=== PATIENT | female | born 1965 | race Caucasian/White ===

== ENCOUNTER 2018-05-09 12:31 | Inpatient (IN) | payer MEDICAID ==
[~2018-05-09] VITALS: Ht 160 cm; Wt 63.1 kg
--- NOTE | 2018-05-09 12:53 | NUR ---
PT BIB FAMILY C/C ABD PAIN X 5 DAYS WITH FEVER AWAITING FOR DR SARA CHOE
--- NOTE | 2018-05-09 12:57 | NUR ---
DR ESPITIA AT BEDSIDE TO EVAL
[2018-05-09 13:21] LABS: BASOPHIL % 0.1 % (0-2); PLATELET COUNT 314 x10^3mcL (130-400); RED CELL DISTRIBUTION WIDTH 12.9 % (11.5-14.5)
[2018-05-09 13:34] LABS: CARBON DIOXIDE 27.1 mmol/L (21-32); CHLORIDE SERUM 95 mmol/L (98-107); CREATININE SERUM 0.8 mg/dL (0.6-1.0); GFR1 > 60 mL/min; GLUCOSE SERUM 300 mg/dL (74-106); SODIUM SERUM 132 mmol/L (136-145)
[2018-05-09 13:50] LABS: ALBUMIN 3.7 g/dL (3.4-5.0); ALKALINE PHOSPHATASE 140 U/L (46-116); ALT/SGPT 29 U/L (14-59); AST/SGOT 28 U/L (15-37)
[2018-05-09 13:52] LABS: TOTAL PROTEIN, SERUM 8.3 g/dL (6.4-8.2)
[2018-05-09 13:53] LABS: POTASSIUM SERUM 4.2 mmol/L (3.5-5.1)
--- NOTE | 2018-05-09 13:53 | NUR ---
XRAY AT BEDSIDE
[2018-05-09 13:56] LABS: microscopic required? YES; urine erythrocyte 1+ (NEGATIVE)
[2018-05-09] MEDS ORDERED: ZESTRIL20 MG PO (14:11)
[2018-05-09] MEDS ORDERED: METFORMIN HYD1000 M2 PO (14:12)
[2018-05-09] MEDS ORDERED: LANTUS SOLOS100 U/M1 SQ (14:12)
[2018-05-09] MEDS ORDERED: GLIPIZIDE10 M2 PO (14:12)
--- NOTE | 2018-05-09 14:20 | NUR ---
DR ESPITIA AT BEDSIDE TO GO OVER PLAN OF CARE
[2018-05-09 14:48] LABS: AMPHETAMINE QUAL UR NONE DETECTED (See below)
[2018-05-09 15:00] LABS: MAGNESIUM 1.9 mg/dL (1.8-2.4)
--- NOTE | 2018-05-09 15:52 | NUR ---
PT ADMIT TO 256B GAVE REPORT TO SRINIVAS
--- NOTE | 2018-05-09 16:24 | NUR ---
PLEASE ENTER FULL NAMES OF OPTICAL ENGINEERING TECHNICIAN/RN Patient data collected by (OPTICAL ENGINEERING TECHNICIAN):GREER EMANUEL Assessment reviewed and completed by (RN):QUANG BOND
--- NOTE | 2018-05-09 16:45 | NUR ---
RECEIVED PT FROM ER STAFF. PT AMBULATORY, AWAKE, ALERT, ORIENTED x4. PT DENIES HEADACHE, DIZZINESS, SOB, CP. TELE MONITOR#6 SINUS RHYTHM ON MONITOR. PT DENIES ABD PAIN, BOWEL SOUNDS ACTIVE TO ALL QUADRANTS, SOFT TO PALPATION. PALPABLE PULSES +2 TO ALL EXTREMITIES. BREATH SOUNDS CLEAR TO AUSCULTATION TO ALL SETH. PT REPORTS DYSURIA AND FREQUENCY UA: + SKIN INTACT. IV PATENT TO LAC#20 ORIENTED PT TO ROOM ENVIRONMENT, CALL LIGHT SYSTEM. NON-SLIP SOCKS APPLIED. BED IN LOWEST POSITION, CALL LIGHT WITHIN REACH.
--- NOTE | 2018-05-09 17:36 | NUR ---
RENAL US COMPLETED. PT TOLERATED WELL. CALL LIGHT WITHIN REACH.
--- NOTE | 2018-05-09 17:54 | NUR ---
[facility]SA SPECIMEN COLLECTED. SENT TO LAB
[2018-05-09 18:20] VITALS: BP 127/50
--- NOTE | 2018-05-09 18:48 | NUR ---
PT C/O MILD DIZZINESS. DISCOMFORT. MEDICATED PER EMAR. TOLERATED WELL. EFFORTLESS BREATHING ON ROOM AIR. IV INFUSING WELL TO LAC#20. BED IN LOWEST POSITION, CALL LIGHT WITHIN REACH. FAMILY AT BEDSIDE.
--- NOTE | 2018-05-09 19:50 | NUR ---
RECEIVED PT AWAKE, ALERT AND ORIENTED X4, NO DISTRESS NOTED. PT REPORTS RELIEF OF DIZZINESS/TURK FROM EARLIER AT THIS TIME. TELE IN PLACE #6, READING NSR. PT DENIES CHEST DISCOMFORT. FOUND PT ON RA, BREATHING E/U, DENIES SOB AT THIS TIME. PT ADMITTED FOR +UA, REPORTS MILD DYSURIA AND URINARY FREQUENCY. DENIES LOWER ABD PAIN. IV TO LAC NOTED, SITE IS FREE OF INFILTRATION AND REDNESS, IVF INFUSING PER MD ORDER. ALL SAFETY MEASURES MAINTAINED. FAMILY AT BEDSIDE. ALL CALL LIGHT AND PERSONAL ITEMS IN REACH. WILL CONTINUE TO MONITOR.
[2018-05-09 20:07] VITALS: BP 115/45
--- NOTE | 2018-05-10 01:31 | NUR ---
ASSISTED PT UP TO RESTROOM, STEADY GAIT. NO DISTRESS NOTED. PT DENIES PAIN OR DISCOMFORT AT THIS TIME. IVF INFUSING ORDERED. SAFETY MEASURES MAINTAINED.
--- NOTE | 2018-05-10 04:53 | NUR ---
PT RESTED INTERMITTENTLY DURING THE NIGHT WITH NO DISTRESS OR ACUTE CHANGES IN CONDITION NOTED. PT REPORTS MILD DISCOMFORT TO LOWER ABD/SUPRABPUBIC AREA AT THIS TIME, SHE REFUSED PAIN MED AND STATES IT IS TOLERABLE. PT DENIES N/V, TURK, DIZZINESS AT THIS TIME. IV TO LAC REMAINS PATENT AND INTACT, INFUSING IVF ORDERED. ALL SAFETY MEASURES MAINTAINED. CALL LIGHT IN REACH. WILL ENDORSE CARE TO AM NURSE AND CONTINUE TO MONITOR.
[2018-05-10 05:08] VITALS: BP 146/58
--- NOTE | 2018-05-10 05:33 | NUR ---
DR. CHANDRA MADE AWARE OF PTS TEMP OF 103.8 ORAL AND TYL GIVEN. WILL CONTINUE TO MONITOR.
--- NOTE | 2018-05-10 06:20 | NUR ---
PTS TEMP NOW AT 100.4. COOLING MEASURES INITIATED. NO C/O TURK, DIZZINESS AT THIS TIME. SAFETY MEASURES MAINTAINED.
[2018-05-10 06:43] LABS: CALCIUM 7.8 mg/dL (8.5-10.1); CARBON DIOXIDE 26.2 mmol/L (21-32); CHLORIDE SERUM 102 mmol/L (98-107); CREATININE SERUM 0.5 mg/dL (0.6-1.0); GFR1 > 60 mL/min; GLUCOSE SERUM 175 mg/dL (74-106); POTASSIUM SERUM 3.9 mmol/L (3.5-5.1); SODIUM SERUM 136 mmol/L (136-145)
--- NOTE | 2018-05-10 07:30 | NUR ---
PT SITTING AT SIDE OF BED. DENIES HEADACHE. REPORTS MILD DIZZINESS. EFFORLTESS BREATHING ON ROOM AIR. IV PATENT TO LAC#20. BED IN LOWEST POSITION, CALL LIGHT WITHIN REACH. WILL CONTINUE TO MONITOR.
[2018-05-10 07:44] LABS: BASOPHIL % 0.2 % (0-2); PLATELET COUNT 257 x10^3mcL (130-400); RED CELL DISTRIBUTION WIDTH 12.6 % (11.5-14.5)
[2018-05-10 09:01] VITALS: BP 108/38
--- NOTE | 2018-05-10 11:10 | NUR ---
RECEIVED CALL FROM SEBASTIAN FROM [facility] LACTIC ACID ORDERED PER [facility] CALLED AND INFORMED OF PRIORITY OF LAB DRAW.
--- NOTE | 2018-05-10 13:00 | NUR ---
PT SITTING AT SIDE OF BED. TOLERATING DIET WELL. DENIES PAIN, DIZZINESS, HEADACHE. IV INFUSING WELL. EFFORTLESS BREATHING ON ROOM AIR. INSULIN COVERAGE PROVIDED FOR 162. TOLERATED WELL. PROVIDED DIABETIC EDUCATION, QUESTIONS AND CONCERNS ADDRESSED. CALL LIGHT WITHIN REACH. SON AT BEDSIDE.
[2018-05-10 13:11] VITALS: BP 142/56
[2018-05-10 16:49] VITALS: BP 153/55
--- NOTE | 2018-05-10 17:20 | NUR ---
COVERED BLOOD SUGAR PER SLIDING SCALE. PT TOLERATED WELL. MEDICATED PER EMAR FOR TEMP:100.2F COOLING MEASURES IMPLEMENTED, TOLERATED WELL. EFFORLTESS BREATHING ON ROOM AIR. PT DENIES PAIN, CHEST PAIN, SOB, DENIES DYSURIA, FREQUENCY. BED IN LOWEST POSITION, CALL LIGHT WITHIN REACH.
--- NOTE | 2018-05-10 19:42 | NUR ---
DIABETIC TEACHING MATERIAL PROVIDED. CALL LIGHT WITHIN REACH.
--- NOTE | 2018-05-10 20:00 | NUR ---
PT A/A/O X4. DENIES DIZZINESS AND HEADACHE THUS FAR. BREATH SOUNDS CLEAR. BREATHING EVEN AND UNLABORED ON ROOM AIR. DENIES CHEST PAIN AND PRESSURE. BOWEL SOUNDS ACTIVE. NO C/O N/V AND ABD PAIN. IV INTACT ON THE RIGHT FOREARM INFUSING WITH NS AT 100 ML/HR. MADE PT COMFORTABLE. PLACED CALL LIGHT WITH IN REACH. WILL CONTINUE TO MONITOR.
[2018-05-10 21:30] VITALS: BP 113/51
--- NOTE | 2018-05-11 00:54 | NUR ---
PT RESTING WITH EYES CLOSED. NO DISTRESS AND DISCOMFORT NOTED. WILL CONTINUE TO MONITOR.
[2018-05-11 05:48] VITALS: BP 146/55
--- NOTE | 2018-05-11 06:17 | NUR ---
PT QUIET AND RESTING. NO HIGH TEMP NOTED THUS FAR. IV INTACT AND INFUSING ORDERED. MADE PT COMFORTABLE. WILL ENDORSE TO THE AM NURSE ACCORDINGLY.
[2018-05-11 06:59] LABS: BASOPHIL % 0.4 % (0-2); PLATELET COUNT 243 x10^3mcL (130-400); RED CELL DISTRIBUTION WIDTH 12.8 % (11.5-14.5)
--- NOTE | 2018-05-11 07:30 | NUR ---
RECEIVED PT IN NO ACUTE DISTRESS. AMBULATED TO BATHROOM AND BACK TO BED. AAOX4. RESP EVEN AND UNLABORED ON RA. DENIES PAIN. DENIES DIZZINESS OR N/V. VOIDING FREELY. IV TO RFA, NO REDNESS OR SWELLING TO IV SITE. BED IN LOW POSITION, CALL LIGHT WITHIN REACH. WILL CONTINUE TO MONITOR.
[2018-05-11 07:35] LABS: CARBON DIOXIDE 25.9 mmol/L (21-32); CHLORIDE SERUM 107 mmol/L (98-107); CREATININE SERUM 0.5 mg/dL (0.6-1.0); GFR1 > 60 mL/min; GLUCOSE SERUM 173 mg/dL (74-106); POTASSIUM SERUM 3.7 mmol/L (3.5-5.1); SODIUM SERUM 141 mmol/L (136-145)
[2018-05-11 08:00] VITALS: BP 132/49
[2018-05-11] MEDS ORDERED: BACTRIM DS1 TAB (09:51)
[2018-05-11 10:18] VITALS: BP 132/49
--- NOTE | 2018-05-11 10:49 | NUR ---
PT IN NO ACUTE DISTRESS. AWAKE, ALERT, AND ORIENTED. VSS. RX GIVEN. DISCHARGE EDUCATION PROVIDED, PT VERBALIZED UNDERSTANDING. INSTRUCTED PT TO FOLLOW UP WITH PCP. IV DC'D WITH CATHETER INTACT. BELONGINGS WITH PT. PT CALLING HER SON FOR A RIDE HOME. WILL CONTINUE TO MONITOR.
--- NOTE | 2018-05-11 11:39 | NUR ---
PT DISCHARGED TO HOME IN NO ACUTE DISTRESS. AWAKE, ALERT, AND ORIENTED. VSS. AMBULATORY. TELE REMOVED. BELONGINGS WITH PT. IVETH PURI ACCOMPANIED PT TO LOBBY.
[2018-05-11 13:22] VITALS: Ht 160 cm; Wt 63.1 kg
== END 2018-05-11 11:39 | disposition home or self-care (01) | DRG 720 ==
LOC: EDBD 12:31 → ED 12:31 → DU 14:18
PROVIDERS: Emergency Medicine; ADMIT General Practice
DX: A41.9 Sepsis, unspecified organism (principal); E11.65 Type 2 diabetes mellitus with hyperglycemia; N39.0 Urinary tract infection, site not specified; Z68.26 Body mass index [BMI] 26.0-26.9, adult; Z79.84 Long term (current) use of oral hypoglycemic drugs; Z79.4 Long term (current) use of insulin
CPT/HCPCS: 82962; 83880; J0696; J2405; J7030; J8597; Q0092

== ENCOUNTER 2018-12-18 12:21 | Emergency (ER) | payer MEDICAID ==
[~2018-12-18] VITALS: Ht 160 cm; Wt 64.4 kg
[~2018-12-18 12:21] MED LIST: BACTRIM DS1 TAB; GLIPIZIDE10 M2 PO; LANTUS SOLOS100 U/M1 SQ; METFORMIN HYD1000 M2 PO; ZESTRIL20 MG PO
[2018-12-18 12:32] VITALS: Ht 160 cm; Wt 64.4 kg
[2018-12-18 14:59] VITALS: BP 151/74
== END 2018-12-18 15:14 | disposition home or self-care (01) ==
LOC: ED 12:21
DX: S86.911A Strain of unspecified muscle(s) and tendon(s) at lower leg level, right leg, initial encounter (principal); I10 Essential (primary) hypertension; E11.9 Type 2 diabetes mellitus without complications; Z98.890 Other specified postprocedural states; W18.09XA Striking against other object with subsequent fall, initial encounter; Y93.89 Activity, other specified; Y92.89 Other specified places as the place of occurrence of the external cause; Y99.8 Other external cause status

== ENCOUNTER 2019-04-06 09:25 | Emergency (ER) | payer SELFPAY ==
[~2019-04-06] VITALS: Ht 157.5 cm; Wt 65.8 kg
[2019-04-06 09:46] VITALS: Ht 157.5 cm; Wt 65.8 kg
[2019-04-06 12:09] LABS: UA SPECIFIC GRAVITY 1.025 (1.005-1.035); microscopic required? YES; urine erythrocyte TRACE (NEGATIVE)
[2019-04-06 12:14] LABS: BASOPHIL % 0.3 % (0-2); PLATELET COUNT 227 x10^3mcL (130-400); RED CELL DISTRIBUTION WIDTH 12.7 % (11.5-14.5)
[2019-04-06 12:32] LABS: T3 TOTAL 1.24 ng/mL
[2019-04-06 12:37] LABS: FREE T4 1.06 ng/dL (0.76-1.46); T4(THYROXINE) 9.1 ug/dL (4.7-13.3)
[2019-04-06 12:39] LABS: CK-MB < 0.5 ng/mL (0-3.6); CREATINE KINASE 47 U/L (26-192)
[2019-04-06 13:33] LABS: ERYTHROCYTE SED RATE 38 mm/hr (0-30)
[2019-04-06 14:41] LABS: ALBUMIN 3.5 g/dL (3.4-5.0); ALKALINE PHOSPHATASE 127 U/L (46-116); ALT/SGPT 36 U/L (14-59); AST/SGOT 28 U/L (15-37); C REACTIVE PROTEIN 12.9 mg/dL (<=0.9); CALCIUM 8.9 mg/dL (8.5-10.1); CREATININE SERUM 0.6 mg/dL (0.6-1.0); GFR1 > 60 mL/min; GLUCOSE SERUM 92 mg/dL (74-106); TOTAL PROTEIN, SERUM 7.7 g/dL (6.4-8.2)
[2019-04-06 14:47] LABS: CHLORIDE SERUM 102 mmol/L (98-107); POTASSIUM SERUM 3.4 mmol/L (3.5-5.1); SODIUM SERUM 139 mmol/L (136-145)
[2019-04-06 15:35] VITALS: BP 117/40
== END 2019-04-06 15:15 | disposition home or self-care (01) ==
LOC: ED 09:25
PROVIDERS: Specialist
DX: B34.9 Viral infection, unspecified (principal); E86.0 Dehydration; I10 Essential (primary) hypertension; E11.9 Type 2 diabetes mellitus without complications; Z98.890 Other specified postprocedural states
CPT/HCPCS: 36600; 82962; 84439; 87804; J0696; J7030; J7060